=== PATIENT | female | born 1970 | race Caucasian/White ===

== ENCOUNTER 2017-03-02 11:46 | Emergency (ER) | payer OTHER ==
[2017-03-02] MEDS ORDERED: NS 1,000 ML IV ONE (11:56)
--- NOTE | 2017-03-02 11:56 | EDPHY ---
H & P Stated Complaint: palpitations for 2 weeks, seen by cards, and at [facility] HPI/ROS: HPI CHIEF COMPLAINT: Palpitations HISTORY OF PRESENT ILLNESS: This patient very pleasant 46-year-old female significant past medical history for SVT, followed by Dr. Pelaez, status post ablation, and diabetes, she presents emergency room with palpitations x2 weeks. She states she was seen at [facility] and placed on propranolol for palpitations. She does tell me she had a positive D-dimer during that ER visit however did not receive a CT angiogram of her chest. She had ultrasounds of her lower extremities did not show a DVT. She states she has since had ongoing palpitations no chest pain no shortness of breath. Denies pleuritic pain denies hemoptysis. Patient states that for the past 2 weeks she has had frequent palpitations that come in clusters. No syncope. She states they are very irritating to her and keep her up at night she can' t sleep. She gets anxiety with. She states that she is followed by the [facility] she change her medication from propranolol to metoprolol 25 mg twice daily. Still has palpitations. Past Medical History: SVT, diabetes Past Surgical History: Colon biopsy, cholecystectomy, cardiac ablation Social History: Denies daily use of drugs alcohol tobacco products Family History: Noncontributory ROS REVIEW OF SYSTEMS: A comprehensive 10 point review of systems is otherwise negative aside from elements mentioned in the history of present illness. Exam Constitutional appears well nontoxic, triage nursing summary reviewed, vital signs reviewed, awake/alert. Eyes normal conjunctivae and sclera, EOMI, PERRLA. HENT normal inspection, atraumatic, moist mucus membranes, no epistaxis, neck supple/ no meningismus, no raccoon eyes. Respiratory clear to auscultation bilaterally, normal breath sounds, no respiratory distress, no wheezing. Cardiovascular rate normal, regular rhythm, no murmur, no edema, distal pulses normal. Gastrointestinal soft, non-tender, no rebound, no guarding, normal bowel sounds, no distension, no pulsatile mass. Genitourinary no CVA tenderness. Musculoskeletal no midline vertebral tenderness, full range of motion, no calf swelling, no tenderness of extremities, no meningismus, good pulses, neurovascularly intact. Skin pink, warm, & dry, no rash, skin atraumatic. Neurologic awake, alert and oriented x 3, AAOx3, moves all 4 extremities equally, motor intact, sensory intact, CN II-XII intact, normal cerebellar, normal vision, normal speech. Psychiatric normal mood/affect. Heme/Lymph/Immune no lymphadenopathy. Differential Diagnosis: Includes but is not limited to in a particular order, electrolyte disturbance, cardiac arrhythmia, ACS, PE Medical Decision Making: Plan for this patient for palpitations EKG, blood work , IV fluid bolus, check basic blood work. Also speak with Cardiology. Re-evaluation: EKG interpretation by me on record in [employer] system. Impression time of EKG 1219: Normal sinus rhythm rate of 99 PVC present. I do not appreciate acute ischemia. Specifically no ST elevation, ST depression. 1359: I spoke with the [facility], recommends up her dose of metoprolol 50 twice daily. She understands at [facility] will call for appointment or Thursday of this week. Her workup here for palpitations been unremarkable she has a nonischemic EKG normal D-dimer normal troponin. Normal blood work. Mag was slightly low she did receive magnesium here. [facility] will plan on repeating her BMP and Mag this week. She understands return emergency room if she develops chest pain, shortness of breath or significant palpitations. Source: Patient - Personal History LMP (Females 10-55): Now Current Tetanus/Diphtheria Vaccine: Yes Current Tetanus Diphtheria and Acellular Pertussis (TDAP): Yes - Medical/Surgical History Hx Asthma: No Hx Chronic Respiratory Disease: No Hx Diabetes: Yes Hx Cardiac Disease: No Hx Renal Disease: No Hx Cirrhosis: No Hx Alcoholism: No Hx HIV/AIDS: No Hx Splenectomy or Spleen Trauma: No Other PMH: DM II, ST, palpitations, eczema. gb removed. D+C. ablation for svt 02/01 - Social History Smoking Status: Former smoker Constitutional: Initial Vital Signs Temperature (C) 36.3 C 03/02/17 11:47 Heart Rate 121 H 03/02/17 11:47 Respiratory Rate 16 03/02/17 11:47 Blood Pressure 121/65 H 03/02/17 11:47 O2 Sat (%) 93 03/02/17 11:47 O2 Delivery Mode Room Air Allergies/Adverse Reactions: Opioids - Morphine Analogues Allergy (Verified 01/15/14 16:00) Home Medications: Medication Instructions Recorded Metformin HCl [Metformin 1000 mg] 1,000 mg PO BIDMEAL 01/15/14 glipiZIDE [Glipizide 10 MG (RX)] 10 mg PO BIDMEAL 01/15/14 Multivitamins [Multivitamin (*)] 1 each PO DAILY 01/25/14 Aspirin [Aspirin 325 mg (*)] 325 mg PO DAILY #0 tab 01/26/14 Cephalexin [Keflex (*)] 500 mg PO QID #40 cap 05/19/14 Metoprolol Tartrate [Lopressor 50 50 mg PO BID #60 tab 03/02/17 mg (*)] Medical Decision Making - Data Points Laboratory Results: Laboratory Results 03/02/17 12:30 03/02/17 12:30 03/02/17 03/02/17 03/02/17 12:30 12:30 12:30 WBC 9.25 10^3/uL 10^3/uL (3.80-9.50) RBC 4.84 10^6/uL 10^6/uL (4.18-5.33) Hgb 14.7 g/dL g/dL (12.6-16.3) Hct 42.7 % % (38.0-47.0) MCV 88.2 fL fL (81.5-99.8) MCH 30.4 pg pg (27.9-34.1) MCHC 34.4 g/dL g/dL (32.4-36.7) RDW 13.1 % % (11.5-15.2) Plt Count 284 10^3/uL 10^3/uL (150-400) MPV 10.0 fL fL (8.7-11.7) Neut % (Auto) 61.9 % % (39.3-74.2) Lymph % (Auto) 28.6 % % (15.0-45.0) [place] % (Auto) 6.2 % % (4.5-13.0) Eos % (Auto) 2.5 % % (0.6-7.6) Baso % (Auto) 0.3 % % (0.3-1.7) Nucleat RBC Rel Count 0.0 % % (0.0-0.2) Absolute Neuts (auto) 5.72 10^3/uL 10^3/uL (1.70-6.50) Absolute Lymphs (auto) 2.65 10^3/uL 10^3/uL (1.00-3.00) Absolute Monos (auto) 0.57 10^3/uL 10^3/uL (0.30-0.80) Absolute Eos (auto) 0.23 10^3/uL 10^3/uL (0.03-0.40) Absolute Basos (auto) 0.03 10^3/uL 10^3/uL (0.02-0.10) Absolute Nucleated RBC 0.00 10^3/uL 10^3/uL (0-0.01) Immature Gran % 0.5 % % (0.0-1.1) Immature Gran # 0.05 10^3/uL 10^3/uL (0.00-0.10) PT 11.6 SEC L SEC (12.0-15.0) INR 0.86 (0.83-1.16) APTT 28.1 SEC SEC (23.0-38.0) D-Dimer < 0.27 ug/mLFEU ug/mLFEU (0.00-0.50) Sodium 135 mEq/L mEq/L (134-144) Potassium 4.1 mEq/L mEq/L (3.5-5.2) Chloride 104 mEq/L mEq/L (97-110) Carbon Dioxide 20 mEq/l L mEq/l (22-31) Anion Gap 11 mEq/L mEq/L (8-16) BUN 16 mg/dL mg/dL (7-23) Creatinine 0.7 mg/dL mg/dL (0.6-1.0) Estimated GFR > 60 Glucose 204 mg/dL H mg/dL (70-100) Calcium 9.5 mg/dL mg/dL (8.5-10.4) Magnesium 1.2 mg/dL L mg/dL (1.6-2.3) Total Bilirubin 0.6 mg/dL mg/dL (0.1-1.4) Conjugated Bilirubin 0.4 mg/dL mg/dL (0.0-0.5) Unconjugated Bilirubin 0.2 mg/dL mg/dL (0.0-1.1) AST 13 IU/L L IU/L (14-46) ALT 26 IU/L IU/L (9-52) Alkaline Phosphatase 69 IU/L IU/L (38-126) Creatine Kinase 22 IU/L IU/L (0-156) CK-MB (CK-2) Fraction 0.43 ng/mL ng/mL (0-3.19) Troponin I < 0.012 ng/mL ng/mL (0-0.034) NT-Pro-B Natriuret Pep 94 pg/mL pg/mL (0-125) Total Protein 6.7 g/dL g/dL (6.3-8.2) Albumin 3.9 g/dL g/dL (3.5-5.0) Medications Given: Discontinued Medications Sodium Chloride (Ns) 1,000 mls @ 0 mls/hr IV ONCE ONE; Wide Open PRN Reason: Protocol Stop: 03/02/17 11:57 Last Admin: 03/02/17 12:30 Dose: 1,000 mls Magnesium Sulfate (Magnesium Sulf 2 Gm (Premix)) 50 mls @ 50 mls/hr IV EDNOW ONE Stop: 03/02/17 14:01 Last Admin: 03/02/17 13:35 Dose: 50 mls Departure - Departure Disposition: Home, Routine, Self-Care Clinical Impression: Palpitations Condition: Good Instructions: Palpitations (ED) Additional Instructions: 1. You should have a follow-up appointment [facility] on Thursday or of this week. Please call them for an appointment if he do not hear from them. 2. Your magnesium is slightly low I did give him magnesium here in the emergency room. 3. I have increased her metoprolol 50 mg twice daily. This may cause you have low blood pressure lightheadedness if you give her lightheaded you pass out or have a low blood pressure a low heart rate. And hold the medication. Referrals: Monet Figueroa CNP [Primary Care Provider] - As per Instructions Carmelita Connor MD [Medical Doctor] - As per Instructions Prescriptions: Metoprolol Tartrate [Lopressor 50 mg (*)] 50 mg PO BID #60 tab
--- NOTE | 2017-03-02 12:21 | CPEKG ---
Heart Rate: 99 RR Interval: 606 P-R Interval: 164 QRSD Interval: 100 QT Interval: 356 QTC Interval: 457 P [place]: 32 QRS [place]: 62 T Wave [place]: 5 EKG Severity - ABNORMAL ECG - EKG Impression: SINUS TACHYCARDIA EKG Impression: VENTRICULAR PREMATURE COMPLEX EKG Impression: CONSIDER ANTERIOR INFARCT EKG Impression: BORDERLINE T ABNORMALITIES, ANTERIOR LEADS Electronically Signed By: Avel Ballesteros 02-Mar-2017 20:45:49
[2017-03-02 12:46] LABS: % IMMATURE GRANULYOCYTES 0.5 % (0.0-1.1); ABSOLUTE IMMATURE GRANULOCYTES 0.05 10^3/uL (0.00-0.10); ADD DIFF? NO; ADD MORPH? NO; ADD SCAN? NO; ATYPICAL LYMPHOCYTE FLAG 0 (0-99); FRAGMENT RBC FLAG 0 (0-99); HEMATOCRIT 42.7 % (38.0-47.0); HEMOGLOBIN 14.7 g/dL (12.6-16.3); LEFT SHIFT FLG 10 (0-99); LIPEMIA HEMOLYSIS FLAG 90 (0-99); MEAN CELL HEMOGLOBIN 30.4 pg (27.9-34.1); MEAN CELL HEMOGLOBIN CONCENTR. 34.4 g/dL (32.4-36.7); MEAN CELL VOLUME 88.2 fL (81.5-99.8); PLATELET CLUMPS FLAG 10 (0-99); PLATELET COUNT 284 10^3/uL (150-400); RED BLOOD CELL COUNT 4.84 10^6/uL (4.18-5.33); RED CELL DISTRIBUTION WIDTH 13.1 % (11.5-15.2)
[2017-03-02 12:58] LABS: ALANINE AMINOTRANSFERASE 26 IU/L (9-52); ALBUMIN 3.9 g/dL (3.5-5.0); ALKALINE PHOSPHATASE 69 IU/L (38-126); ANION GAP 11 mEq/L (8-16); ASPARTATE AMINOTRANSFERASE 13 IU/L (14-46); BILIRUBIN,TOTAL 0.6 mg/dL (0.1-1.4); BILIRUBIN-CONJUGATED 0.4 mg/dL (0.0-0.5); BILIRUBIN-UNCONJUGATED 0.2 mg/dL (0.0-1.1); CALCIUM 9.5 mg/dL (8.5-10.4); CARBON DIOXIDE 20 mEq/l (22-31); CHLORIDE 104 mEq/L (97-110); CREATININE 0.7 mg/dL (0.6-1.0); GLOMERULAR FILTRATION RATE > 60; GLUCOSE 204 mg/dL (70-100); MAGNESIUM 1.2 mg/dL (1.6-2.3); POTASSIUM 4.1 mEq/L (3.5-5.2); SODIUM 135 mEq/L (134-144); TOTAL PROTEIN 6.7 g/dL (6.3-8.2)
[2017-03-02 13:00] LABS: APTT 28.1 SEC (23.0-38.0); INR 0.86 (0.83-1.16); PROTIME(PATIENT) 11.6 SEC (12.0-15.0)
[2017-03-02] MEDS ORDERED: MAGNESIUM SULF 2 GM/WATER 50 ML IV ONE (13:02)
[2017-03-02 13:09] LABS: CREATINE KINASE-MB FRACTION 0.43 ng/mL (0-3.19); TROPONIN I < 0.012 ng/mL (0-0.034)
[2017-03-02 14:38] VITALS: O2SAT 96
[2017-03-02 14:57] VITALS: BP 118/85; PULSE 90; RESP 16; TEMP 98.6
== END 2017-03-02 14:56 | disposition home or self-care (01) ==
DX: R00.2 Palpitations (principal); E11.9 Type 2 diabetes mellitus without complications; Z79.82 Long term (current) use of aspirin; Z79.84 Long term (current) use of oral hypoglycemic drugs; Z87.891 Personal history of nicotine dependence
CPT/HCPCS: 96365; 96366